=== PATIENT | female | born 1950 | race Caucasian/White ===

== ENCOUNTER 2016-08-13 20:40 | Emergency (ER) | payer OTHER ==
--- NOTE | 2016-08-13 21:34 | RADIOLOGY REPORT ---
EXAMINATION: XR KNEE, LEFT CLINICAL INFORMATION: Fall yesterday. Pain with ambulation. COMPARISON: None TECHNIQUE: Four views of the left knee. FINDINGS: No acute fracture or subluxation. Mild medial compartment joint space narrowing. Small marginal osteophytes. Remaining joint spaces are maintained. There is a prominent joint effusion. IMPRESSION: Prominent joint effusion. No evidence of acute fracture or malalignment.
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
[2016-08-13 22:51] VITALS: BP 160/80
== END 2016-08-13 22:52 ==
LOC: ERH 20:40
DX: S83.92XA Sprain of unspecified site of left knee, initial encounter (principal); W19.XXXA Unspecified fall, initial encounter
CPT/HCPCS: 73562-LT